=== PATIENT | female | born 1980 | race Caucasian/White ===

== ENCOUNTER 2018-05-22 10:52 | Day surgery (SDC) | payer OTHER ==
[2018-05-22] MEDS ORDERED: NS 1,000 ML IV ONE (10:56)
[2018-05-22] MEDS ORDERED: ceFAZolin 2 GM/DEXTROSE 100 ML IV ONE (10:56)
[2018-05-22] MEDS ORDERED: diphenhydrAMINE 25 MG CAP PO ONE (10:56)
[2018-05-22] MEDS ORDERED: DIAZEPAM 5 MG TAB PO ONE (10:56)
[2018-05-22] MEDS ORDERED: BACITRACIN IRRIGATION/NS 50,000 UNITS/1,000 ML BTL IRR ONE (10:56)
--- NOTE | 2018-05-22 11:27 | CPEKG ---
Heart Rate: 62 RR Interval: 968 P-R Interval: 184 QRSD Interval: 148 QT Interval: 416 QTC Interval: 423 P [place]: -58 QRS [place]: -60 T Wave [place]: 91 EKG Severity - ABNORMAL ECG - EKG Impression: ATRIAL-SENSED VENTRICULAR-PACED RHYTHM Electronically Signed By: Wang Marr 23-May-2018 12:02:27
[2018-05-22 11:29] LABS: PLATELET COUNT 268 10^3/uL (150-400)
[2018-05-22] MEDS ORDERED: VANCOMYCIN HCL/NORMAL SALINE 250 ML IV ONE (11:30)
[2018-05-22] MEDS ORDERED: VANCOMYCIN 1 GM in NS 250 ML IV ONE (11:30)
[2018-05-22 11:38] LABS: INR 0.91 (0.83-1.16); PROTIME(PATIENT) 12.5 SEC (12.0-15.0)
--- NOTE | 2018-05-22 11:49 | PDGENHP ---
History & Physical Chief Complaint: 3rd deg av block History of Present Illness: congenital complete av block Relevant Physical Exam: [id number] Cardiorespiratory Assessment: pm generator change. planning sj d/t autocapture algorithm (last device lasted only 7 y). may add new rv lead if necessary, pt and aware
[2018-05-22] MEDS ORDERED: BUPIVACAINE 0.75% 10 ML SDV ONE (11:54)
[2018-05-22] MEDS ORDERED: LIDOCAINE 1% 300 MG/30 ML SDV ONE (11:54)
[2018-05-22] MEDS ORDERED: MIDAZOLAM 2 MG/2 ML VIAL ONE ×2 (12:19→12:34)
[2018-05-22] MEDS ORDERED: MIDAZOLAM 2 MG/2 ML VIAL IVP ONE (12:20)
--- NOTE | 2018-05-22 12:20 | PDANEPAE ---
ANE Past Medical History - Cardiovascular History Hx Hypertension: No Hx Arrhythmias: Yes Hx Chest Pain: No Hx Coronary Artery / Peripheral Vascular Disease: No Hx CHF / Valvular Disease: No Hx Palpitations: No - Pulmonary History Hx COPD: No Hx Asthma/Reactive Airway Disease: No Hx Recent Upper Respiratory Infection: No Hx Oxygen in Use at Home: No Hx Sleep Apnea: No ANE Review of Systems Review of Systems: ANE Patient History - Allergies Allergies/Adverse Reactions: No Known Allergies Allergy (Unverified 05/22/18 10:56) - Smoking Hx Smoking Status: Never smoked ANE Labs/Vital Signs - Labs Result Diagrams: 05/22/18 11:20 05/22/18 11:20 - Vital Signs Height: 180.34 cm Weight: 79.379 kg ANE Physical Exam - Airway Neck exam: FROM Mallampati Score: Class 1 Mouth exam: normal dental/mouth exam - Pulmonary Pulmonary: no respiratory distress - Cardiovascular Cardiovascular: regular rate and rhythym - ASA Status ASA Status: II ANE Anesthesia Plan Anesthesia Plan: GA with mask Total IV Anesthesia: Yes
[2018-05-22] MEDS ORDERED: PROPOFOL/EMULSION 500 MG/50 ML BOTTLE IV ONE ×2 (12:34→12:47)
[2018-05-22] MEDS ORDERED: fentaNYL 100 MCG/2 ML INJ ONE (12:34)
[2018-05-22] MEDS ORDERED: KETAMINE 500 MG/10 ML VIAL ONE (12:50)
--- NOTE | 2018-05-22 13:38 | EPPROC ---
Electrophysiology Procedure Note: PROCEDURE PERFORMED: 1. AV Pacemaker generator change 2. Keloid excision scar revision INDICATION: Pacemaker generator at [place] Bradycardia PROCEDURE NOTE: Patient presented to the cardiac catheterization laboratory in a fasting, postabsorptive state. Dr. Scott administered sedation. The left infraclavicular area was prepped and draped in the usual sterile fashion. Lidocaine plus bupivacaine was used for local anesthesia. A crescent-shaped incision was made because of pre-existing keloid in thinning of skin and the keloid and subcutaneous tissue surrounding it was excised. Using a combination of blunt and sharp dissection and electrocautery, the dissection was carried down to the prepectoral fascia and the existing pacemaker pocket was opened. The pacemaker generator was disconnected from the leads and the lead thresholds and impedance were checked. The pacemaker pocket was copiously irrigated with antibiotic solution. The pocket was again inspected for any bleeding. The leads were attached to the pacemaker securely. The pacemaker was inserted into the pocket and secured in place with a nonabsorbable suture. The pacemaker pocket was closed in 3 layers with absorbable monocryl sutures and kaushik. Appropriate dressing was applied. The patient left the cardiac catheterization laboratory in stable condition. Serial Numbers: 1. Device [employer] MRI 2272 serial number [id number] 2. Atrial Lead [employer]onic 4076 serial number [id number] V implanted 2004. There is an old abandoned atrial lead, I do not have its serial number. 3. Ventricular Lead [employer]onic 4068 serial number [id number] Stimulation Thresholds & Impedance Measurements: 1. Atrial Lead 0.6 VOLT AT 0.5 MILLISECONDS 1.7 MA IMPEDANCE 332 OHMS P- WAVES 2.7 MV 2. Ventricular Lead 2.5 VOLTS AT 1.0 MILLISECONDS 6.3 MA IMPEDANCE 396 OHMS R-WAVES 4.8 MV PATIENT HAS UNDERLYING VENTRICULAR ESCAPE RHYTHM AT 45-60 BEATS PER MINUTE. Abilio Pacing Parameters 1. Pacing mode DDD 2. Lower rate 60 ppm 3. Upper tracking rate 170 ppm 4. Upper sensor rate 170 ppm 5. Mode switch 180 ppm Patient Problems: Problems Problem Status Onset Complete AV block Acute
--- NOTE | 2018-05-22 13:54 | CPEKG ---
Heart Rate: 60 RR Interval: 1000 P-R Interval: 188 QRSD Interval: 144 QT Interval: 460 QTC Interval: 460 P [place]: 70 QRS [place]: -62 T Wave [place]: 83 EKG Severity - ABNORMAL ECG - EKG Impression: ATRIAL-VENTRICULAR DUAL-PACED RHYTHM Electronically Signed By: Wang Marr 23-May-2018 12:02:07
== END 2018-05-22 15:31 | disposition home or self-care (01) ==
LOC: FCATH 10:52
PROVIDERS: ATTEND Internal Medicine Cardiovascular Disease
PROC: 0JPT0PZ Removal of Cardiac Rhythm Related Device from Trunk Subcutaneous Tissue and Fascia, Open Approach (ICD-10-PCS; principal; 2018-05-22)
DX: T82.111A Breakdown (mechanical) of cardiac pulse generator (battery), initial encounter (principal); I44.2 Atrioventricular block, complete; I71.2 Thoracic aortic aneurysm, without rupture
CPT/HCPCS: C1785; J0690; J2250; J2704; J3010; J3370